=== PATIENT | male | born 1950 | race Caucasian/White ===

== ENCOUNTER 2018-09-26 09:24 | Day surgery (SDC) | payer MEDICARE, BC ==
[2018-09-26] MEDS ORDERED: PROPOFOL 10 MG/ML VIAL IV ONE (09:25)
[2018-09-26] MEDS ORDERED: LIDOCAINE 2% MDV (20MG/ML) 20ML VIAL IV ONE (09:25)
--- NOTE | 2018-09-27 12:31 | Operative Note ---
DATE OF SURGERY: 09/26/2018 Surgeon: Donnie Hernandez D.O. Referring physician: Natanael Phillip D.O. OPERATION: 1. COLONOSCOPY TO THE CECUM WITH COLD BIOPSY FORCEPS POLYPECTOMY X2. 2. COLD SNARE POLYPECTOMY X4. INDICATION: Prior history of adenomatous polyps. The patient returns after 3 years for surveillance. He recently had an episode of ischemic colitis as well. Anesthesia: Intravenous sedation was administered by the Department of Anesthesiology and included Diprivan titrated to effect. PROCEDURE: Following informed consent from this alert individual, including a discussion of the risks and benefits of the procedure and opportunity for the patient to ask questions, the patient was in the left lateral decubitus position. Digital rectal examination was performed. No abnormalities were noted. Following this, the Olympus PCF 180 video colonoscope was inserted in the rectum without resistance. The rectal mucosa had a normal appearance with normal folds and distensibility. The colonoscope was advanced up through the bowel to the level of the cecum with some difficulty to a redundant colon. Abdominal pressure support was applied to facilitate reaching the cecal pouch. There was some retained stool and debris in the right colon, most of which was completely washed away and suctioned with water wash and suctioning. At the level of the cecum, there were a total of 5 polyps noted; 3 within the cecum itself and 2 in the ascending colon near the ileocecal valve. Two polyps were diminutive in size and removed with biopsy forceps, 3 polyps were between 4 and 6 mm in size and removed with cold snare polypectomy and suctioned through the colonoscope into a collection trap. Also noted upon initial inspection was fairly extensive diverticulosis in the sigmoid colon and a few diverticula noted in the ascending colon as well. From the cecum, the colonoscope was then withdrawn. No additional changes were appreciated upon withdrawal. Again, diverticulosis was apparent in both the right and left colon. There was a polyp noted in the mid rectum, measuring 4 to 5 mm in size and removed with cold snare polypectomy. Retroflexion also demonstrated small internal hemorrhoids. The endoscope was withdrawn. Overall, the preparation was fair to good following suctioning and washing. IMPRESSION: 1. Diverticulosis in the right and left colon. 2. A somewhat redundant colon. 3. Fair to good colon preparation following washing and suctioning. 4. Two cecal polyps, removed with biopsy forceps as described above. 5. A total of 4 polyps removed from the cecum, ascending colon, and rectum, measuring 4 to 6 mm in size, removed with cold snare polypectomy. RECOMMENDATIONS: Further recommendations will be forthcoming pending results of pathology obtained today, might recommend surveillance examination in 2 years' time due to the difficult procedure related to her redundancy of the colon and the fair to good preparation. Followup will also be with Dr. Natanael Phillip. CC: Dr. Natanael BAIN
== END 2018-09-26 11:32 | disposition home or self-care (01) ==
LOC: HOP 09:24
PROVIDERS: ATTEND Internal Medicine Gastroenterology
DX: Z12.11 Encounter for screening for malignant neoplasm of colon (principal); Z87.19 Personal history of other diseases of the digestive system; D12.0 Benign neoplasm of cecum; D12.2 Benign neoplasm of ascending colon; D12.8 Benign neoplasm of rectum; K57.30 Diverticulosis of large intestine without perforation or abscess without bleeding; Q43.8 Other specified congenital malformations of intestine; I10 Essential (primary) hypertension; E78.00 Pure hypercholesterolemia, unspecified